=== PATIENT | female | born 1985 | race Hispanic/Latino ===

== ENCOUNTER 2018-07-27 18:57 | Emergency (ER) | payer SELFPAY ==
[~2018-07-27] VITALS: Ht 162.6 cm; Wt 81.6 kg
[2018-07-27] MEDS ORDERED: ALBUTEROL/IPRATROPIUM 3 ML NEB NEB ONE (19:30)
[2018-07-27] MEDS ORDERED: PREDNISONE 20 MG TAB PO ONE (19:30)
--- NOTE | 2018-07-27 20:44 | Diagnostic Imaging Report ---
CHEST 2 VIEWS, Technique: CHEST 2 VIEWS Comparison: None Clinical history: Cough, wheezing DISCUSSION: Normal cardiomediastinal silhouette. No consolidation or edema. No pleural effusion or pneumothorax. IMPRESSION: No evidence of pneumonia Signed by: Dr Simona Smalls MD on 07/27/2018 8:43 PM
[2018-07-27] MEDS ORDERED: PREDNISONE20 MG PO (20:48)
[2018-07-27] MEDS ORDERED: PROAIR HFA INH8.5 GM INH (20:48)
[2018-07-27 21:00] VITALS: BP 152/102
== END 2018-07-27 21:05 | disposition home or self-care (01) ==
LOC: ER 18:57
DX: R05 Cough (principal); I10 Essential (primary) hypertension
CPT/HCPCS: 71046; 94640; 99284

== ENCOUNTER 2025-03-16 21:44 | Emergency (ER) | payer SELFPAY ==
[~2025-03-16] VITALS: Ht 165.1 cm; Wt 90.7 kg
[~2025-03-16 21:44] MED LIST: PREDNISONE20 MG PO; PROAIR HFA INH8.5 GM INH
[2025-03-16 21:46] VITALS: RESP 16; TEMP 98.2
[2025-03-16 22:48] VITALS: PULSE 70
[2025-03-16 22:49] VITALS: BP 134/83; PULSE 75; RESP 16; TEMP 98.2; O2SAT 98
== END 2025-03-16 22:56 | disposition home or self-care (01) ==
LOC: FSED 21:47
DX: F41.0 Panic disorder [episodic paroxysmal anxiety] (principal); F43.9 Reaction to severe stress, unspecified; I10 Essential (primary) hypertension; R06.4 Hyperventilation
CPT/HCPCS: 93005; 99283